=== PATIENT | female | born 1980 | race Caucasian/White ===

== ENCOUNTER 2024-09-19 10:51 | Outpatient (CLI) | payer OTHER | END 2024-09-19 11:49 | disposition home or self-care (01) | LOC: NST 10:51 | PROVIDERS: ATTEND Obstetrics & Gynecology Maternal & Fetal Medicine | DX: Z34.83 Encounter for supervision of other normal pregnancy, third trimester (principal) ==

== ENCOUNTER 2024-12-10 16:30 | Outpatient (CLI) | payer OTHER ==
[2024-12-11] MEDS ORDERED: FOLIC ACID20 MG (18:04)
[2024-12-11] MEDS ORDERED: PRENATAL TABLE1 EAC1 (18:04)
[2024-12-11] MEDS ORDERED: IRON325 MG (18:05)
[2024-12-11] MEDS ORDERED: VITAMIN D310 MCG/1 M (18:05)
[2024-12-11] MEDS ORDERED: GAVISCON EXTRA355 ML (18:06)
== END 2024-12-10 18:00 | disposition home or self-care (01) ==
LOC: NST 16:30
PROVIDERS: ATTEND Obstetrics & Gynecology
DX: Z34.83 Encounter for supervision of other normal pregnancy, third trimester (principal)

== ENCOUNTER 2024-12-13 08:45 | Inpatient (IN) | payer OTHER ==
[~2024-12-13] VITALS: Ht 167.6 cm; Wt 3.2 kg
[~2024-12-13 08:45] MED LIST: FOLIC ACID20 MG; GAVISCON EXTRA355 ML; IRON325 MG; PRENATAL TABLE1 EAC1; VITAMIN D310 MCG/1 M
[2024-12-13 10:58] LABS: INR < 0.93; PARTIAL THROMBOPLASTIN TIME 27.8 SECONDS (22.0-34.0); PROTHROMBIN TIME 9.9 SECONDS (9.0-11.5)
[2024-12-13 11:00] LABS: HEMATOCRIT 35.4 % (36.0-45.00); MEAN CELL VOLUME 82.9 fL (80.00-100.00); MEAN CORPUSCULAR HGB CONC 33.8 g/dl (32.0-36.0); RED BLOOD COUNT 4.28 M/uL (4.00-6.00); RED CELL DISTRIBUTION WIDTH 15.1 % (11.5-14.5)
[2024-12-13 11:11] LABS: PLATELET COUNT 126 K/uL (150-450)
[2024-12-13 11:37] LABS: ALBUMIN 2.5 gm/dL (3.4-5.0); BILIRUBIN TOTAL 0.49 mg/dL (0.3-1.2); CALCIUM 9.1 mg/dL (8.5-10.1); CREATININE SERUM 0.72 mg/dL (0.55-1.02); GFR 87.99; GLOBULINA 3.2 G/DL (2.4-3.5); POTASSIUM 4.43 mEq/L (3.5-5.1); TOTAL PROTEIN 5.7 gm/dL (6.4-8.2)
[2024-12-18 05:39] VITALS: BP 128/88
[2024-12-18] MEDS ORDERED: RINGERS SOLUTION,LACTATED 1,000 ML IV SCH (10:45)
[2024-12-18] MEDS ORDERED: PROMETHAZINE HCL 25 MG/ML AMPUL IV PRN (11:00)
[2024-12-18] MEDS ORDERED: OXYTOCIN 1,000 ML IV ONE (11:00)
[2024-12-18] MEDS ORDERED: MEPERIDINE HCL/PF 25 MG/ML VIAL IV PRN (11:00)
[2024-12-18] MEDS ORDERED: CEFAZOLIN SODIUM 1,000 MG VIAL IV ONE (11:15)
[2024-12-18] MEDS ORDERED: MORPHINE SULFATE 4 MG/ML VIAL IV ONE (11:50)
[2024-12-18] MEDS ORDERED: ONDANSETRON HCL 2 MG/ML VIAL IV SCH (12:00)
[2024-12-18] MEDS ORDERED: ACETAMINOPHEN 500 MG GEL..CAP PO SCH (12:00)
[2024-12-18 14:47] LABS: HEMATOCRIT 27.9 % (36.0-45.00); MEAN CORPUSCULAR HGB CONC 34.1 g/dl (32.0-36.0); RED BLOOD COUNT 3.37 M/uL (4.00-6.00); RED CELL DISTRIBUTION WIDTH 15.3 % (11.5-14.5)
[2024-12-18 14:50] LABS: MEAN CORPUSCULAR HEMOGLOBIN 28.1 pg (27.00-32.0)
[2024-12-18 14:51] LABS: HEMOGLOBIN 9.5 g/dL (12.0-15.00); PLATELET COUNT 79 K/uL (150-450)
[2024-12-18] MEDS ORDERED: METHYLERGONOVINE MALEATE 0.2 MG/ML AMPUL IM STA (15:52)
[2024-12-18] MEDS ORDERED: OXYTOCIN 20 UNITS/1000ML RL PIGGYBAG IV ONE (16:00)
[2024-12-18 16:13] VITALS: BP 125/86
[2024-12-18] MEDS ORDERED: SIMETHICONE 125 MG CAPSULE PO SCH (17:00)
[2024-12-18] MEDS ORDERED: GABAPENTIN 300 MG CAPSULE PO SCH (17:00)
[2024-12-18 17:35] LABS: HEMATOCRIT 28.8 % (36.0-45.00); HEMOGLOBIN 9.6 g/dL (12.0-15.00); MEAN CELL VOLUME 84.2 fL (80.00-100.00); MEAN CORPUSCULAR HEMOGLOBIN 28.2 pg (27.00-32.0); MEAN CORPUSCULAR HGB CONC 33.5 g/dl (32.0-36.0); RED BLOOD COUNT 3.42 M/uL (4.00-6.00); RED CELL DISTRIBUTION WIDTH 15.1 % (11.5-14.5)
[2024-12-18 17:47] LABS: PLATELET COUNT 80 K/uL (150-450)
[2024-12-18] MEDS ORDERED: FAMOTIDINE/PF 20 MG/2 ML VIAL IV PUSH SCH (18:47)
[2024-12-18 19:09] LABS: MANUAL PLATELET COUNT 125
[2024-12-19 00:45] VITALS: BP 135/69
[2024-12-19] MEDS ORDERED: OxyCODONE HCL 5 MG TABLET (ROXICODONE) PO PRN (08:00)
[2024-12-19 08:03] LABS: MEAN CELL VOLUME 82.6 fL (80.00-100.00); MEAN CORPUSCULAR HGB CONC 34.8 g/dl (32.0-36.0); RED BLOOD COUNT 2.52 M/uL (4.00-6.00); RED CELL DISTRIBUTION WIDTH 15.4 % (11.5-14.5)
[2024-12-19 08:12] LABS: HEMATOCRIT 20.8 % (36.0-45.00); HEMOGLOBIN 7.3 g/dL (12.0-15.00); MEAN CORPUSCULAR HEMOGLOBIN 28.9 pg (27.00-32.0); PLATELET COUNT 64 K/uL (150-450)
[2024-12-19] MEDS ORDERED: MAGNESIUM SULFATE IN WATER 500 ML IV SCH (08:30)
[2024-12-19] MEDS ORDERED: DOCUSATE SODIUM 100MG CAP PO SCH (09:00)
[2024-12-19] MEDS ORDERED: ONDANSETRON HCL 2 MG/ML VIAL IM SCH (09:00)
[2024-12-19 09:03] VITALS: BP 160/86
[2024-12-19 11:57] LABS: ALBUMIN 2.1 gm/dL (3.4-5.0); BILIRUBIN TOTAL 0.67 mg/dL (0.3-1.2); CALCIUM 8.5 mg/dL (8.5-10.1); CREATININE SERUM 1.71 mg/dL (0.55-1.02); GFR 32.43; GLOBULINA 2.6 G/DL (2.4-3.5); POTASSIUM 4.24 mEq/L (3.5-5.1); TOTAL PROTEIN 4.7 gm/dL (6.4-8.2)
[2024-12-19 12:24] LABS: D DIMER 18.74 MG/L; FIBRINOGEN 314 mg/dL (187.0-446.0); INR < 0.93; PARTIAL THROMBOPLASTIN TIME 28.3 SECONDS (22.0-34.0)
[2024-12-19] MEDS ORDERED: LABETALOL HCL 200 MG TABLET PO NR (13:00)
[2024-12-19 13:02] VITALS: BP 148/86
[2024-12-19] MEDS ORDERED: LABETALOL HCL 100 MG/20 ML ML IV PUSH STA (13:12)
[2024-12-19] MEDS ORDERED: TRAMADOL HCL 50 MG TABLET PO SCH (15:00)
[2024-12-19] MEDS ORDERED: DIPHENHYDRAMINE HCL 50 MG/ML VIAL 1ML IV SCH (15:00)
[2024-12-19 16:00] VITALS: BP 150/80
[2024-12-19] MEDS ORDERED: LABETALOL HCL 200 MG TABLET PO SCH (17:00)
[2024-12-19] MEDS ORDERED: SOD FERRIC GLUC COMPLX/SUCROSE 125 MG in 0.9 % SODIUM CHLORIDE 100 ML IV SCH (17:00)
[2024-12-19] MEDS ORDERED: METHYLPREDNISOLONE SOD SUCC 40 MG VIAL IV STA (17:50)
[2024-12-19] MEDS ORDERED: METOCLOPRAMIDE HCL 10 MG in 0.9 % SODIUM CHLORIDE 50 ML IV SCH (18:00)
[2024-12-19] MEDS ORDERED: MORPHINE SULFATE 4 MG/ML VIAL IV PRN (19:15)
[2024-12-19] MEDS ORDERED: MULTIVIT INFUSN,ADULT 4,VIT K 10 ML VIAL IV SCH (21:00)
[2024-12-20] MEDS ORDERED: METHYLPREDNISOLONE SOD SUCC 40 MG VIAL IV SCH (01:00)
[2024-12-20 03:02] VITALS: BP 130/80
[2024-12-20] MEDS ORDERED: LABETALOL HCL 100 MG/20 ML ML IV PUSH ONE (06:45)
[2024-12-20] MEDS ORDERED: hydrALAZINE HCL 20 MG VIAL IV ONE (08:00)
[2024-12-20] MEDS ORDERED: MAGNESIUM SULFATE IN WATER 500 ML IV SCH (08:00)
[2024-12-20] MEDS ORDERED: hydrALAZINE HCL 20 MG VIAL IV NR (08:30)
[2024-12-20] MEDS ORDERED: BISACODYL 10 MG/SUPP.RECT SUPP.RECT RECTAL SCH (09:00)
[2024-12-20] MEDS ORDERED: GLYCERIN 2.1 GM SUPP.RECT RECTAL SCH (09:00)
[2024-12-20 09:53] VITALS: BP 140/70
[2024-12-20] MEDS ORDERED: hydrALAZINE HCL 20 MG VIAL IV PRN (13:45)
[2024-12-20 16:23] LABS: HEMATOCRIT 31.7 % (36.0-45.00); HEMOGLOBIN 10.9 g/dL (12.0-15.00); MEAN CELL VOLUME 84.9 fL (80.00-100.00); MEAN CORPUSCULAR HEMOGLOBIN 29.2 pg (27.00-32.0); MEAN CORPUSCULAR HGB CONC 34.4 g/dl (32.0-36.0); PLATELET COUNT 137 K/uL (150-450); RED BLOOD COUNT 3.74 M/uL (4.00-6.00); RED CELL DISTRIBUTION WIDTH 15.7 % (11.5-14.5)
[2024-12-20 16:31] VITALS: BP 130/70
[2024-12-20 16:32] LABS: INR < 0.93; PROTHROMBIN TIME 9.2 SECONDS (9.0-11.5)
[2024-12-20 16:34] LABS: PARTIAL THROMBOPLASTIN TIME 22.8 SECONDS (22.0-34.0)
[2024-12-20 16:40] LABS: ALBUMIN 2.4 gm/dL (3.4-5.0); BILIRUBIN TOTAL 1.57 mg/dL (0.3-1.2); CALCIUM 8.2 mg/dL (8.5-10.1); CREATININE SERUM 1.35 mg/dL (0.55-1.02); GFR 42.6; GLOBULINA 3.2 G/DL (2.4-3.5); POTASSIUM 4.16 mEq/L (3.5-5.1); TOTAL PROTEIN 5.6 gm/dL (6.4-8.2)
[2024-12-20 19:02] LABS: URINE APPEARANCE Cloudy; URINE BILIRRUBIN Negative (NEGATIVE); URINE BLOOD Large; URINE COLOR Yellow; URINE GLUCOSE Negative (NEGATIVE); URINE KETONE Negative (NEGATIVE); URINE LEUKOCYTE Negative; URINE NITRATE Negative; URINE PROTEIN Negative (NEGATIVE); URINE UROBILINOGEN 0.2 E.U./dl
[2024-12-20 19:06] LABS: URINE BACTERIA 53.8 uL (0.0-1933); URINE EPITHELIAL CELLS 83.7 uL (0.0-38.8); URINE RBC 2277.5 uL (0.0-20.8); URINE WBC 26.5 uL (0.0-23.2)
[2024-12-20 19:35] VITALS: BP 140/80; O2SAT 99
[2024-12-21] VITALS: BP 140/80; O2SAT 95
[2024-12-21 07:59] VITALS: BP 120/80
[2024-12-21] MEDS ORDERED: LABETALOL HCL 200 MG TABLET PO SCH (09:00)
[2024-12-21 11:58] LABS: HEMATOCRIT 31.9 % (36.0-45.00); HEMOGLOBIN 10.9 g/dL (12.0-15.00); MEAN CELL VOLUME 85.9 fL (80.00-100.00); MEAN CORPUSCULAR HEMOGLOBIN 29.4 pg (27.00-32.0); MEAN CORPUSCULAR HGB CONC 34.2 g/dl (32.0-36.0); PLATELET COUNT 183 K/uL (150-450); RED BLOOD COUNT 3.71 M/uL (4.00-6.00)
[2024-12-21 12:25] LABS: ALBUMIN 2.5 gm/dL (3.4-5.0); BILIRUBIN TOTAL 1.32 mg/dL (0.3-1.2); CALCIUM 7.7 mg/dL (8.5-10.1); CREATININE SERUM 1.06 mg/dL (0.55-1.02); GFR 56.31; GLOBULINA 3.5 G/DL (2.4-3.5); POTASSIUM 4.29 mEq/L (3.5-5.1)
[2024-12-21] MEDS ORDERED: DIATRIZOATE MEGLUMINE, SODIUM 30 ML BOTTLE PO NR (13:00)
[2024-12-21 16:00] VITALS: BP 130/75
[2024-12-22] VITALS: BP 113/62; O2SAT 95
[2024-12-22] MEDS ORDERED: FAMOtidine 20 MG TABLET PO SCH (09:02)
[2024-12-22 09:21] VITALS: BP 131/74
[2024-12-22] MEDS ORDERED: PREDNISONE 20 MG TABLET PO SCH (10:36)
[2024-12-22 15:29] VITALS: BP 138/76
[2024-12-22 20:14] VITALS: BP 113/71
[2024-12-23 00:23] VITALS: BP 116/60
[2024-12-23 05:47] VITALS: BP 125/70
[2024-12-23 08:32] VITALS: BP 135/74
[2024-12-23 15:48] VITALS: BP 144/82
[2024-12-23 18:55] LABS: HEMATOCRIT 26.4 % (36.0-45.00); HEMOGLOBIN 9.1 g/dL (12.0-15.00); MEAN CELL VOLUME 86.6 fL (80.00-100.00); MEAN CORPUSCULAR HEMOGLOBIN 29.8 pg (27.00-32.0); MEAN CORPUSCULAR HGB CONC 34.4 g/dl (32.0-36.0); PLATELET COUNT 189 K/uL (150-450); RED BLOOD COUNT 3.05 M/uL (4.00-6.00); RED CELL DISTRIBUTION WIDTH 16.8 % (11.5-14.5)
[2024-12-23 19:12] LABS: ALBUMIN 2.4 gm/dL (3.4-5.0); BILIRUBIN TOTAL 1.11 mg/dL (0.3-1.2); CALCIUM 8.1 mg/dL (8.5-10.1); CREATININE SERUM 0.8 mg/dL (0.55-1.02); GFR 77.92; GLOBULINA 2.8 G/DL (2.4-3.5); POTASSIUM 3.78 mEq/L (3.5-5.1); TOTAL PROTEIN 5.2 gm/dL (6.4-8.2)
[2024-12-23 20:47] VITALS: BP 138/78
[2024-12-24] VITALS: BP 133/78
[2024-12-24 09:00] VITALS: BP 137/79
== END 2024-12-24 17:25 | disposition home or self-care (01) | DRG 787 ==
LOC: O/R 12-18 05:30 → OB/GYN 12-18 08:45
PROVIDERS: Obstetrics & Gynecology Maternal & Fetal Medicine; ADMIT Obstetrics & Gynecology; ATTEND Obstetrics & Gynecology
PROC: 4A1HXCZ Monitoring of Products of Conception, Cardiac Rate, External Approach (ICD-10-PCS; 2024-12-18)
PROC: 10D00Z1 Extraction of Products of Conception, Low, Open Approach (ICD-10-PCS; principal; 2024-12-18 09:30)
PROC: 30233N1 Transfusion of Nonautologous Red Blood Cells into Peripheral Vein, Percutaneous Approach (ICD-10-PCS; 2024-12-20)
PROC: 30233K1 Transfusion of Nonautologous Frozen Plasma into Peripheral Vein, Percutaneous Approach (ICD-10-PCS; 2024-12-20)
PROC: BW21YZZ Computerized Tomography (CT Scan) of Abdomen and Pelvis using Other Contrast (ICD-10-PCS; 2024-12-21)
DX: O13.4 Gestational [pregnancy-induced] hypertension without significant proteinuria, complicating childbirth (principal); D62 Acute posthemorrhagic anemia; K56.7 Ileus, unspecified; O99.12 Other diseases of the blood and blood-forming organs and certain disorders involving the immune mechanism complicating childbirth; K91.89 Other postprocedural complications and disorders of digestive system; O14.24 HELLP syndrome, complicating childbirth; O34.29 Maternal care due to uterine scar from other previous surgery; D69.6 Thrombocytopenia, unspecified; O99.62 Diseases of the digestive system complicating childbirth; Z3A.37 37 weeks gestation of pregnancy; Z37.0 Single live birth; O99.02 Anemia complicating childbirth